=== PATIENT | female | born 1950 | race Caucasian/White ===

== ENCOUNTER 2019-06-23 08:25 | Day surgery (SDC) | payer OTHER ==
[~2019-06-23] VITALS: Ht 180.3 cm; Wt 105.7 kg
--- NOTE | ~2019-06-23 | O ---
[facility] [place] [address] OPERATIVE REPORT Name: VIDHYA BENAVIDES Lauri Room #: 150-1 [facility] M..#: [id number] Admission: 06/23/19 Attend Phys: Adam Paulino MD Discharge: Date of : 50 Report #: [id number] THIS REPORT FOR: //name// CC: KATHY Paulino DATE OF SERVICE: 06/23/2019 PREOPERATIVE DIAGNOSIS: Unilateral right-sided nasal lacrimal duct obstruction. POSTOPERATIVE DIAGNOSIS: Unilateral right-sided nasal lacrimal duct obstruction. OPERATION PERFORMED: Unilateral right-sided endoscopic balloon dacryoplasty with silicone intubation. ANESTHESIA: General. COMPLICATIONS: None. INDICATIONS FOR SURGERY: This patient has acquired unilateral nasal lacrimal duct stenosis with chronic tearing and discharge. The current procedures are undertaken in order to improve the patient's level of lacrimal outflow and visual clarity. Informed consent was obtained to include but not limited to the potential risks for damage to the eye, loss of vision, bleeding, infection, failure to improve the problem and need for further surgery. DESCRIPTION OF OPERATION: The patient was taken to the operating room, where general anesthesia was administered. The medial canthus was anesthetized with 2% Xylocaine with epinephrine mixed with equal parts of 0.75% Marcaine with Wydase. The lateral wall of the nose was then injected with the same anesthetic mixture. The nose was packed with Afrin-soaked Cottonoids. The patient was then prepped and draped in the usual sterile fashion. The superior and inferior puncta were then atraumatically dilated with a punctum dilator. A size 0 lacrimal probe was then passed through the superior canalicular system and through the stenosed nasal lacrimal duct. The nasal packing was removed and the endoscope was brought into the field. The inferior turbinate was gently infractured with a Orbisonia periosteal elevator to allow visualization of the inferior meatus in the area of the opening of the valve of Hasner in the nose. The probe was found and confirmed to be in the proper location. It was removed and subsequently replaced with a size 1 and a size [address] [address] OPERATIVE REPORT Name: VIDHYA BENAVIDES Room #: 150-1 [facility]..#: [id number] Admission: 06/23/19 Attend Phys: Adam Paulino MD Discharge: Date of : 50 Report #: [id number] Goss probe, which also had their passage confirmed endoscopically to be in the proper location. A 3 x 15 LacriCatheter was lubricated with a small quantity of ophthalmic antibiotic ointment. The LacriCatheter was then passed through the superior canalicular system and the stenosed nasal lacrimal duct. The LacriCatheter was confirmed to be in the proper location endoscopically intranasally in the inferior meatus. The LacriCatheter was inflated to 9 atmospheres for 90 seconds and deflated. The catheter was then inflated to 9 atmospheres for 60 seconds. The catheter was then withdrawn to the proximal black ring. It was then inflated to 9 atmospheres for 90 seconds. The balloon was then deflated and reinflated to 9 atmospheres for 60 seconds. The balloon was the aspirated and withdrawn to the distal black ring. It was then inflated to 9 atmospheres for 90 seconds. The balloon was deflated and reinflated to 9 atmospheres for 60 seconds. The balloon was then deflated and vigorously aspirated as it was withdrawn through the superior canalicular system. A Bunch tube was then passed through the superior canalicular system and out the dilated duct. The Bunch tube was secured under the inferior turbinate in the inferior meatus with a Bunch hook and retrieved endoscopically. The Bunch tube was then passed through the inferior canalicular system in a similar fashion and was retrieved endoscopically in the nose atraumatically. The Bunch tube was then secured to itself with 3 square throws and then to the lateral wall of the nose with a 5-0 Prolene suture. Antibiotic steroid drops were then placed in the eye. A small quantity of ophthalmic antibiotic ointment was placed on the Bunch tube. The patient was then transported to the recovery area with no anesthetic or operative complications being noted. By: [id number] Adam Paulino MD /nt
[~2019-06-23 08:25] MED LIST: ALEVE220 MG PO; LIPITOR 20 MG T20 M1 PO; LOSARTAN POTAS100 MG PO; MELATONIN3 MG PO; OMEPRAZOLE40 MG PO; TRIPLE FLEX CA1 EACH PO; VITAMIN D2000 UNIT PO; [UNRECOGNIZED DRUG - OTHER] PO
[2019-06-23 10:57] VITALS: BP 184/52
== END 2019-06-23 11:40 | disposition home or self-care (01) ==
LOC: EDBD → OR 08:25 → TBA 08:29 → OR 09:30
DX: H04.551 Acquired stenosis of right nasolacrimal duct (principal); I10 Essential (primary) hypertension; E78.5 Hyperlipidemia, unspecified; K21.9 Gastro-esophageal reflux disease without esophagitis; Z98.890 Other specified postprocedural states; Z88.0 Allergy status to penicillin; Z88.8 Allergy status to other drugs, medicaments and biological substances; Z79.899 Other long term (current) drug therapy
CPT/HCPCS: 50010; 50101; 50386; 50398; 51777; 55343; 56528; 64037